=== PATIENT | female | born 1955 | race Hispanic/Latino ===

== ENCOUNTER 2017-05-13 08:25 | Observation (INO) | payer BC ==
[2014-06-16 15:56] VITALS: BMI 43.9
[2017-05-13] MEDS ORDERED: Midazolam 2 MG/2 ML VIAL ONE (12:46)
[2017-05-13] MEDS ORDERED: Propofol 10 mg/ml Inj (20 ML) ONE (12:46)
[2017-05-13] MEDS: HYDROmorphone 0.5 mg/0.5 ml ISec IVP PRN ×3 (13:28→13:55)
[2017-05-13 14:36] LABS: CK-MB 0.93 ng/mL (0.0-3.38)
--- NOTE | 2017-05-13 14:46 | CP.PCM.PN ---
Subjective - Date & Time of Evaluation Date of Evaluation: 05/13/17 Time of Evaluation: 13:30 - Subjective Subjective: Called to evaluate patient's chest pain/pressure at bedside. Patient describes it as intermittent pressure pointing to lower sternal and epigastric area. She states she has not felt this before. Pain is not reproducible to palpation. Vital signs noted as pulse 61, BP 149/75, pulse ox 100% on room air. Stat EKG ordered and reviewed as sinus bradycardia with no ST changes, SUZETTE panel ordered. Consulted with Dr. Garrison and she agreed to a medicine consult. Objective - Vital Signs/Intake and Output Vital Signs (last 24 hours): Temp Pulse Resp BP Pulse Ox 97.8 F 80 20 149/93 H 95 05/13/17 08:37 05/13/17 08:37 05/13/17 08:37 05/13/17 08:37 05/13/17 08:37 Intake and Output: 05/13/17 05/13/17 06:59 18:59 Intake Total 500 Balance 500 - Medications Medications: Current Medications Hydromorphone HCl (Dilaudid) 0.5 mg IVP Q10M PRN PRN Reason: Pain, moderate (4-7) Stop: 05/13/17 15:09
--- NOTE | 2017-05-13 15:19 | RAD ---
HISTORY: chest pressure COMPARISON: No prior. FINDINGS: LUNGS: No active pulmonary disease. PLEURA: No significant pleural effusion identified, no pneumothorax apparent. CARDIOVASCULAR: Normal. OSSEOUS STRUCTURES: No significant abnormalities. VISUALIZED UPPER ABDOMEN: Normal. OTHER FINDINGS: None. IMPRESSION: No active disease.
--- NOTE | 2017-05-13 15:45 | CP.PCM.CON ---
<EzioPhoebe - Last Filed: 05/13/17 15:52> History of Present Illness - History of Present Illness History of Present Illness: Medicine consult Reason for consult: post op chest pain HPI: Patient is a 61 year old female with PMH of CAD ([place] x5 per patient with 1 stent placed 10 years ago), HTN, hyperlipidemia, parotid CA (surgically removed) , GERD, COPD, peripheral vascular disease, diverticulosis, and post menopausal bleeding who presents in the PACU s/p D&C with substernal, non-radiating, non- reproducible chest pain/pressure. Patient says she woke up from surgery with this pain as well as feeling tired and weak all over. She says nothing makes it better or worse. She also admits to associated dizziness and nausea. Patient says she had a stress test 2 weeks ago for medical clearance for surgery which was normal. This was reviewed in her chart and confirmed. Last cath in 2014 showed 50% occlusion of LCX but otherwise normal study. Patient denies pain in her arms/neck/jaw, headache, changes in vision/hearing, SOB, abdominal pain, vomiting, diarrhea, changes in urination. PMD: Dr. Casillas Credit Officer: Arabella PMH: CAD ([place] x5 per patient with 1 stent placed 10 years ago), HTN, hyperlipidemia, parotid CA (surgically removed), GERD, COPD, peripheral vascular disease, diverticulosis, and post menopausal bleeding Meds: albuterol inhaler, lipitor 20 mg daily, carvedilol 12.5 mg daily, HCTZ 12.5 mg daily Allergies: PCN Surgeries: D&C (05/13/17), Left thumb unspecified, excision of parotid tumor, cholecystectomy, cardiac stent x1 FH: heart disease on mom's side of family, mother of vulvar cancer SH: former smoker (2 PPD x39 years, quit 10 years ago), social alcohol use, denies recreational drug use Review of Systems - Review of Systems All systems: reviewed and no additional remarkable complaints except (as per HPI ) Past Patient History - Infectious Disease Hx of Infectious Diseases: None - Tetanus Immunizations Tetanus Immunization: Unknown - Past Medical History & Family History Past Medical History?: Yes - Past Social History Smoking Status: Former Smoker - CARDIAC Hx Cardiac Disorders: Yes Hx Angina: Yes Hx Heart Attack: Yes Hx Hypercholesterolemia: Yes Hx Hypertension: Yes Hx Peripheral Vascular Disease: Yes (VARICOSE VEINS) Other/Comment: HX:CORONARY STENT (RCA)X1 - PULMONARY Hx Respiratory Disorders: Yes Hx Chronic Obstructive Pulmonary Disease (COPD): Yes Hx Emphysema: Yes - NEUROLOGICAL Hx Neurological Disorder: Yes Other/Comment: Numbness left facial area due to surgery. - ENDOCRINE/METABOLIC Hx Endocrine Disorders: Yes (Cancer of parathyroid) - HEMATOLOGICAL/ONCOLOGICAL Hx Blood Disorders: Yes Hx Cancer: Yes (HX: CANCER PARATHYROID GLAND(SURGERY-NO CHEMO)) - INTEGUMENTARY Hx Dermatological Problems: Yes Other/Comment: HX: LEFT BREAST CYSTS - MUSCULOSKELETAL/RHEUMATOLOGICAL Hx Musculoskeletal Disorders: Yes Hx Falls: No Hx Fractures: Yes (Left thumb) Other/Comment: HX: DIVERTICULOSIS - GASTROINTESTINAL Hx Gastrointestinal Disorders: Yes Hx Gall Bladder Disease: Yes Hx Gastroesophageal Reflux: Yes (Freq Heart burn) - GENITOURINARY/GYNECOLOGICAL Hx Genitourinary Disorders: Yes Hx Postmenopausal Bleeding: Yes - SURGICAL HISTORY Hx Surgeries: Yes Hx Breast Biopsy: Yes (LEFT BREAST X2-CYSTS) Hx Cardiac Catheterization: Yes Hx Cholecystectomy: Yes Hx Coronary Stent: Yes (X1) Other/Comment: Parathyroid gland removed due to cancer. Left breast Lumpectomy X2. Left thumb repair with pins. - ANESTHESIA Hx Anesthesia: Yes Hx Anesthesia Reactions: No Hx Malignant Hyperthermia: No Has any member of the family had a problem w/ anesthesia?: No Meds Allergies/Adverse Reactions: Allergies Allergy/AdvReac Type Severity Reaction Status Date / Time Penicillins Allergy RASH Unverified 05/05/17 13:26 Physical Exam - Constitutional Appears: Non-toxic, No Acute Distress - Head Exam Head Exam: NORMAL INSPECTION - Eye Exam Eye Exam: EOMI, Normal appearance, PERRL - ENT Exam ENT Exam: Mucous Membranes Moist - Respiratory Exam Respiratory Exam: Clear to Auscultation Bilateral, NORMAL BREATHING PATTERN. absent: Accessory Muscle Use, Rales, Rhonchi, Wheezes, Respiratory Distress - Cardiovascular Exam Cardiovascular Exam: RRR, +S1, +S2. absent: Tachycardia, Diastolic murmur, Gallop, Rubs, Systolic Murmur - GI/Abdominal Exam GI & Abdominal Exam: Normal Bowel Sounds, Soft. absent: Distended, Tenderness - Extremities Exam Extremities exam: Positive for: pedal edema. Negative for: calf tenderness - Neurological Exam Neurological exam: Alert, Oriented x3 - Psychiatric Exam Psychiatric exam: Normal Affect, Normal Mood - Skin Skin Exam: Dry, Intact, Normal Color, Warm Results - Vital Signs Recent Vital Signs: Last Vital Signs Temp 97.8 F 05/13/17 08:37 Pulse 80 05/13/17 08:37 Resp 20 05/13/17 08:37 BP 149/93 H 05/13/17 08:37 Pulse Ox 95 05/13/17 08:37 - Labs Labs: Laboratory Results - last 24 hr 05/13/17 14:12 Total Creatine Kinase 67 CK-MB (Mass) 0.93 Troponin I < 0.0120 Assessment & Plan (1) Chest pain Assessment and Plan: * Admit to telemetry for observation * Troponin negative x1 * f/u trend (20:00 tonight and 02:00 tomorrow morning) * EKG: Normal sinus rhythm * CXR: no active disease * Protonix * Nitro paste 1/2 in * f/u with Garrison for recs on Aspirin and whether or not to give s/p D&C * Most recent stress test (2 weeks ago) was normal Status: Acute Onset Date: 05/13/17 - Assessment and Plan (Free Text) Assessment: 61F with PMH of CAD ([place] x5 per patient with 1 stent placed 10 years ago), HTN, hyperlipidemia, parotid CA (surgically removed), GERD, COPD, peripheral vascular disease, diverticulosis, and post menopausal bleeding who presents in the PACU s/p D&C with substernal, non-radiating, non-reproducible chest pain/ pressure. <Dayanna Crane V - Last Filed: 05/13/17 18:45> Meds - Medications Medications: Current Medications Pantoprazole Sodium (Protonix Ec Tab) 40 mg PO DAILY ANI Results - Vital Signs Recent Vital Signs: Last Vital Signs Temp 97.8 F 05/13/17 08:37 Pulse 80 05/13/17 08:37 Resp 20 05/13/17 08:37 BP 149/93 H 05/13/17 08:37 Pulse Ox 95 05/13/17 08:37 - Labs Labs: Laboratory Results - last 24 hr 05/13/17 14:12 Total Creatine Kinase 67 CK-MB (Mass) 0.93 Troponin I < 0.0120 Attending/Attestation - Attestation I have personally seen and examined this patient.: Yes I have fully participated in the care of the patient.: Yes I have reviewed all pertinent clinical information: Yes Notes (Text): Patient seen, examined, and case discussed with day-time resident. Patient seen in the PACU. Reviewed EKG: Sinus bradycardia HR: 55 and SUZETTE: negative. Patient reports chest pain, in the middle of her chest, non-radiating, started after the surgery. Patient denies sour taste in mouth. Patient prior to my arrival has received Dilaudid 0.5mg IV X3 doses. Patient had LAMA, had propofol, fentanyl, and midazolam. Patient has significant cardiac history including hypertension, coronary artery disease, prior RCA stent in 2015 was evaluated by cardiology prior to D&C procedure with OB-MAMMALOGY TEACHER Discussed with OB-MAMMALOGY TEACHER, patient had minimal blood loss during procedure, may restart Aspirin. From her prespective, stable for discharge. Will observe patient overnight and monitor EKG and ROMIsX3 in light of chest pain given cardiac history. patient's medical and cardiac clearances are included in the paper chart. Assessment/Plan (1) Chest pain History of Coronary Artery Disease Hypertension Assessment and Plan: * Observation to telemetry * Troponin negative x1 * SUZETTE and EKG at 20:00 tonight * SUZETTE and EKG at 2:00 tomorrow * EKG: bradycardia (HR 55) * CXR: no active disease * Apply Nitro paste 1/2 inch topical for chest pain * f/u with Garrison for recs on Aspirin and whether or not to give s/p D&C * Most recent stress test (2 weeks ago) was normal * Restart Aspirin 81mg PO daily * Restart beta-elayne, statin, and diuretic * Ordered for a1c, tsh, cbc, cmp, mag, phosp in AM 2) Postmenopausal bleeding Assessment and Plan: * management per OB-MAMMALOGY TEACHER * minimal bleeding during procedure * Permits Aspirin use post procedure 3) Prophylactic measure Assessment and Plan: * Hold chemical anticoagulation since patient's postoperative day 0 * Hold SCDS given history of PVD * Protonix 40mg PO daily
[2017-05-13] MEDS ORDERED: Nitroglycerin 2% Ointment Foilpak UD TOP ONE (15:48)
--- NOTE | 2017-05-13 17:09 | PCM.SURG1 ---
Surgeon's Initial Post Op Note - Surgeon's Notes Surgeon: Yuly Garrison MD Slitter Service And Setter: none Type of Anesthesia: General LMA Pre-Operative Diagnosis: Postmenopausal bleeding Operative Findings: enlarged uteurs, 10 weeks, no adnexa lmasses, cervical stenosis, bilaer ostia visulalized, no gross masses Post-Operative Diagnosis: same as above Operation Performed: Operative hysterosocpy, fractional dilation and currettage Specimen/Specimens Removed: endocervical curretting, endometrial currettings Estimated Blood Loss: EBL {In ML}: 20 Blood Products Given: N/A Drains Used: No Drains Post-Op Condition: Good Date of Surgery/Procedure: 05/13/17 Time of Surgery/Procedure: 13:00
--- NOTE | 2017-05-13 17:17 | CP.PCM.PN ---
Subjective - Date & Time of Evaluation Date of Evaluation: 05/13/17 Time of Evaluation: 14:10 - Subjective Subjective: pt s/p DXC hysterosocpy co chest pressure in recomvery room. upon evulation pt rperots feelng pressure on chest, no direct cp, sob. pt reports discomfort feels like gas. pt evluated by anestheisa, ekg and troponin ordered,which was dmitriy/negaive Upone evuation VSS PE GEN NAD, Oxygen face mask RESP: CTAB?l CVS: +S1/S2 BS: soft, nt , nd EXT: negative homans sign VE: no vaginal bleeding Pt reevaluted 30 min later and felt like vomiting, pt given zofran and started to feel better IM Consult called- Dr Dayanna Crane to evlaute pt for overnight telemetry due to cardia chistory Objective - Vital Signs/Intake and Output Vital Signs (last 24 hours): Temp Pulse Resp BP Pulse Ox 97.8 F 80 20 149/93 H 95 05/13/17 08:37 05/13/17 08:37 05/13/17 08:37 05/13/17 08:37 05/13/17 08:37 Intake and Output: 05/13/17 05/13/17 06:59 18:59 Intake Total 500 Balance 500 - Medications Medications: Current Medications Pantoprazole Sodium (Protonix Ec Tab) 40 mg PO DAILY ANI
[2017-05-13] MEDS ORDERED: Albuterol HFA 90 mcg/actuation (8 g) INH PRN (18:40)
[2017-05-13 20:53] LABS: CK-MB 0.71 ng/mL (0.0-3.38)
[2017-05-14 00:25] VITALS: RESP 20
--- NOTE | 2017-05-14 01:21 | OP ---
PROCEDURE DATE: 05/13/2017 SURGEON: Yuly Garrison MD SCENE AND LIGHTING DESIGN LECTURER: None. TYPE OF ANESTHESIA: General LMA. PREOPERATIVE DIAGNOSIS: Postmenopausal bleeding. POSTOPERATIVE DIAGNOSIS: Postmenopausal bleeding. OPERATIVE FINDINGS: Enlarged uterus of 10 weeks, mild cervical stenosis, bilateral ostia visualized, no gross masses. OPERATIONS PERFORMED: Operative hysteroscopy and fractional dilation and curettage. SPECIMENS REMOVED: Endocervical curettings, endometrial curettings. ESTIMATED BLOOD LOSS: 20 mL. BLOOD PRODUCTS: None. COMPLICATIONS: None. DESCRIPTION OF PROCEDURE: The patient was taken to the operating where she was given general anesthesia, once this was found to be adequate, she was placed on the operating table in the dorsal supine position with legs supported using stirrups. The patient was then prepped and draped in the usual sterile fashion. Bimanual examination was performed with the above-mentioned findings. A red rubber catheter was then inserted into the urethra to drain the bladder. Following this, a Cannon retractor was placed on the anterior and posterior fornix of the vagina. The cervix was adequately visualized and a single-tooth tenaculum was placed in the anterior lip of the cervix, and endocervical curettings were obtained with a [facility] cure[facility] and sent to pathology on [facility]. The cervix was sequentially dilated and uterus was then sounded to 6 cm. Following this, the cervix was sequentially dilated to allow for introduction of a 5 mm hysteroscope under direct visualization using normal saline as the distention media. Following this, there was no mass noted in the endometrial cavity. Bilateral ostia were visualized. The hysteroscope was then removed and a gentle curettage was done 360 in endometrial cavity until gritty texture was noted. Specimen was sent to pathology. All instruments were removed. There was good hemostasis at the tenaculum puncture sites. At the end of the procedure, all needle, sponge and instrument counts were noted and correct x2. The patient tolerated the procedure well and was transferred to the recovery room in stable condition. Yuly Garrison MD
[2017-05-14 03:53] LABS: CK-MB 0.62 ng/mL (0.0-3.38)
[2017-05-14 07:18] LABS: BASO % 0.4 % (0.0-2.0); EOS # 0.3 K/uL (0.0-0.7); EOS % 2.7 % (0.0-4.0); HEMOGLOBIN 13.2 g/dL (11.0-16.0); LYMPH % 19.4 % (20.0-40.0); MEAN CELL VOLUME 86.6 fL (81.0-99.0); MEAN CORPUSCULAR HEMOGLOBIN 29.1 pg (27.0-31.0); MEAN CORPUSCULAR HGB CONC 33.6 g/dL (33.0-37.0); MEAN PLATELET VOLUME 10.8 fL (7.2-11.7); MONO # 0.8 K/uL (0.0-0.8); MONO % 7.4 % (0.0-10.0); NEUT # 7.2 K/uL (1.8-7.0); NEUT % 70.1 % (50.0-75.0); RBC 4.53 Mil/uL (3.80-5.20); RED CELL DISTRIBUTION WIDTH 15.1 % (11.5-14.5); WHITE BLOOD COUNT 10.2 K/uL (4.8-10.8)
[2017-05-14 07:27] LABS: ALB/GLOB RATIO 1.2 (1.0-2.1); ALBUMIN 3.9 g/dL (3.5-5.0); ALT/SGPT 41 U/L (9-52); AST/SGOT 33 U/L (14-36); BLOOD UREA NITROGEN 10 mg/dL (7-17); CALCIUM 8.9 mg/dl (8.6-10.4); GFR AFRICAN-AMERICAN > 60; GFR NON-AFRICAN AMERICAN > 60; HDL CHOLESTEROL 40 mg/dL (30-70)
[2017-05-14 07:37] LABS: LDL CHOLESTEROL 131 mg/dL (0-129)
[2017-05-14 07:56] VITALS: TEMP 98.3; O2SAT 97
[2017-05-14 08:04] VITALS: PULSE 79
[2017-05-14] MEDS ORDERED: Pantoprazole 40 mg EC Tab PO SCH (10:00)
[2017-05-14 10:30] VITALS: BP 143/78
--- NOTE | 2017-05-14 11:56 | CP.PCM.DIS ---
<Anthony Padron - Last Filed: 05/14/17 11:53> Provider - Provider Date of Admission: 05/13/17 16:08 Attending physician: Dayanna Crane DO Consults: Dr. Enzo Garrison; OBGYN Time Spent in preparation of Discharge (in minutes): 45 Hospital Course - Lab Results Lab Results: Most Recent Lab Values WBC 10.2 K/uL (4.8-10.8) 05/14/17 07:02 RBC 4.53 Mil/uL (3.80-5.20) 05/14/17 07:02 Hgb 13.2 g/dL (11.0-16.0) 05/14/17 07:02 Hct 39.3 % (34.0-47.0) 05/14/17 07:02 MCV 86.6 fL (81.0-99.0) 05/14/17 07:02 MCH 29.1 pg (27.0-31.0) 05/14/17 07:02 MCHC 33.6 g/dL (33.0-37.0) 05/14/17 07:02 RDW 15.1 % (11.5-14.5) H 05/14/17 07:02 Plt Count 189 K/uL (130-400) 05/14/17 07:02 MPV 10.8 fL (7.2-11.7) 05/14/17 07:02 Neut % (Auto) 70.1 % (50.0-75.0) 05/14/17 07:02 Lymph % (Auto) 19.4 % (20.0-40.0) L 05/14/17 07:02 [place] % (Auto) 7.4 % (0.0-10.0) 05/14/17 07:02 Eos % (Auto) 2.7 % (0.0-4.0) 05/14/17 07:02 Baso % (Auto) 0.4 % (0.0-2.0) 05/14/17 07:02 Neut # (Auto) 7.2 K/uL (1.8-7.0) H 05/14/17 07:02 Lymph # (Auto) 2.0 K/uL (1.0-4.3) 05/14/17 07:02 [place] # (Auto) 0.8 K/uL (0.0-0.8) 05/14/17 07:02 Eos # (Auto) 0.3 K/uL (0.0-0.7) 05/14/17 07:02 Baso # (Auto) 0.0 K/uL (0.0-0.2) 05/14/17 07:02 Sodium 137 mmol/L (132-148) 05/14/17 07:02 Potassium 3.6 mmol/L (3.6-5.2) 05/14/17 07:02 Chloride 98 mmol/L (98-107) 05/14/17 07:02 Carbon Dioxide 28 mmol/L (22-30) 05/14/17 07:02 Anion Gap 15 (10-20) 05/14/17 07:02 BUN 10 mg/dL (7-17) 05/14/17 07:02 Creatinine 0.8 mg/dL (0.7-1.2) 05/14/17 07:02 Est GFR ( Amer) > 60 05/14/17 07:02 Est GFR (Non-Af Amer) > 60 05/14/17 07:02 POC Glucose (mg/dL) 115 mg/dL (65-110) H 05/14/17 06:54 Random Glucose 103 mg/dL (65-105) 05/14/17 07:02 Hemoglobin A1c 5.8 % (4.2-6.5) 05/13/17 20:19 Calcium 8.9 mg/dl (8.6-10.4) 05/14/17 07:02 Total Bilirubin 0.8 mg/dL (0.2-1.3) 05/14/17 07:02 AST 33 U/L (14-36) 05/14/17 07:02 ALT 41 U/L (9-52) 05/14/17 07:02 Alkaline Phosphatase 127 U/L (38-126) H 05/14/17 07:02 Total Creatine Kinase 54 U/L (30-135) 05/14/17 03:25 CK-MB (Mass) 0.62 ng/mL (0.0-3.38) 05/14/17 03:25 Troponin I < 0.0120 ng/mL (0.00-0.120) 05/14/17 03:25 Total Protein 7.2 g/dL (6.3-8.3) 05/14/17 07:02 Albumin 3.9 g/dL (3.5-5.0) 05/14/17 07:02 Globulin 3.3 gm/dL (2.2-3.9) 05/14/17 07:02 Albumin/Globulin Ratio 1.2 (1.0-2.1) 05/14/17 07:02 Triglycerides 123 mg/dL (0-149) 05/14/17 07:02 Cholesterol 206 mg/dL (0-199) H 05/14/17 07:02 LDL Cholesterol Direct 131 mg/dL (0-129) H 05/14/17 07:02 HDL Cholesterol 40 mg/dL (30-70) 05/14/17 07:02 TSH 3rd Generation 0.95 mIU/L (0.46-4.68) 05/14/17 07:02 - Hospital Course Hospital Course: Chest pain s/p dnC procedure Patient has significant cardiac history, as well as many risk factors troponins were negative times three as well as EKG non remarkable for ACS patient no longer has chest pain patient was told to modify diet/exercise plan for her IGT and hyperlipidemia which she knows about from previous blood work. Patient verbalizes understanding and is in agreement with treatment plan. 61F with PMH of CAD ([place] x5 per patient with 1 stent placed 10 years ago), HTN, hyperlipidemia, parotid CA (surgically removed), GERD, COPD, peripheral vascular disease, diverticulosis, and post menopausal bleeding who presents in the PACU s/p D&C with substernal, non-radiating, non-reproducible chest pain/ pressure which has resolved completely. The patient is stable for d/c as per Dr. Crane and OBGYN Discharge Exam - Head Exam Head Exam: NORMAL INSPECTION - Eye Exam Eye Exam: EOMI - ENT Exam ENT Exam: Mucous Membranes Moist - Respiratory Exam Respiratory Exam: Clear to PA & Lateral, NORMAL BREATHING PATTERN. absent: Rales, Rhonchi, Wheezes - Cardiovascular Exam Cardiovascular Exam: REGULAR RHYTHM, RRR, +S1, +S2. absent: Clicks, JVD, Rubs - GI/Abdominal Exam GI & Abdominal Exam: Normal Bowel Sounds. absent: Soft, Tenderness - Extremities Exam Extremities exam: full ROM - Back Exam Back exam: absent: CVA tenderness (L), CVA tenderness (R) - Neurological Exam Neurological exam: Alert, Oriented x3 - Psychiatric Exam Psychiatric exam: Normal Affect, Normal Mood - Skin Skin Exam: Warm Discharge Plan - Follow Up Plan Condition: GOOD Disposition: HOME/ ROUTINE Patient education suggested?: Yes Instructions: Low Cholesterol, Saturated Fat, and Trans Fat Diet , Chest Pain That Is Not Caused by the Heart (DC), Acid Reflux (Gastroesophageal Reflux Disease), Adult (DC), Dilation and Curettage (DC), Postoperative Pain (DC), Prediabetes (DC), Bleeding After Surgery Additional Instructions: Patient is stable for discharge as per Dr Garrison, OB-GLOBAL MARKETING INTERN. Follow up with Dr Garrison within two weeks and follow up with oil plant operator within a week. Activity restriction sheet is provided with discharge instructions. Please refrain from vaginal sex for atleast 2 weeks. No douching, no tampons. Observe for any increase in pain, foul discharge, odor, or bleeding. If chest pain persists or returns please return to emergency department. Prescription for Milk of Magnesia is provided. <Dayanna Crane V - Last Filed: 05/14/17 12:49> Provider - Provider Date of Admission: 05/13/17 16:08 Attending physician: Dayanna Crane DO Hospital Course - Lab Results Lab Results: Most Recent Lab Values WBC 10.2 K/uL (4.8-10.8) 05/14/17 07:02 RBC 4.53 Mil/uL (3.80-5.20) 05/14/17 07:02 Hgb 13.2 g/dL (11.0-16.0) 05/14/17 07:02 Hct 39.3 % (34.0-47.0) 05/14/17 07:02 MCV 86.6 fL (81.0-99.0) 05/14/17 07:02 MCH 29.1 pg (27.0-31.0) 05/14/17 07:02 MCHC 33.6 g/dL (33.0-37.0) 05/14/17 07:02 RDW 15.1 % (11.5-14.5) H 05/14/17 07:02 Plt Count 189 K/uL (130-400) 05/14/17 07:02 MPV 10.8 fL (7.2-11.7) 05/14/17 07:02 Neut % (Auto) 70.1 % (50.0-75.0) 05/14/17 07:02 Lymph % (Auto) 19.4 % (20.0-40.0) L 05/14/17 07:02 [place] % (Auto) 7.4 % (0.0-10.0) 05/14/17 07:02 Eos % (Auto) 2.7 % (0.0-4.0) 05/14/17 07:02 Baso % (Auto) 0.4 % (0.0-2.0) 05/14/17 07:02 Neut # (Auto) 7.2 K/uL (1.8-7.0) H 05/14/17 07:02 Lymph # (Auto) 2.0 K/uL (1.0-4.3) 05/14/17 07:02 [place] # (Auto) 0.8 K/uL (0.0-0.8) 05/14/17 07:02 Eos # (Auto) 0.3 K/uL (0.0-0.7) 05/14/17 07:02 Baso # (Auto) 0.0 K/uL (0.0-0.2) 05/14/17 07:02 Sodium 137 mmol/L (132-148) 05/14/17 07:02 Potassium 3.6 mmol/L (3.6-5.2) 05/14/17 07:02 Chloride 98 mmol/L (98-107) 05/14/17 07:02 Carbon Dioxide 28 mmol/L (22-30) 05/14/17 07:02 Anion Gap 15 (10-20) 05/14/17 07:02 BUN 10 mg/dL (7-17) 05/14/17 07:02 Creatinine 0.8 mg/dL (0.7-1.2) 05/14/17 07:02 Est GFR ( Amer) > 60 05/14/17 07:02 Est GFR (Non-Af Amer) > 60 05/14/17 07:02 POC Glucose (mg/dL) 115 mg/dL (65-110) H 05/14/17 06:54 Random Glucose 103 mg/dL (65-105) 05/14/17 07:02 Hemoglobin A1c 5.8 % (4.2-6.5) 05/13/17 20:19 Calcium 8.9 mg/dl (8.6-10.4) 05/14/17 07:02 Total Bilirubin 0.8 mg/dL (0.2-1.3) 05/14/17 07:02 AST 33 U/L (14-36) 05/14/17 07:02 ALT 41 U/L (9-52) 05/14/17 07:02 Alkaline Phosphatase 127 U/L (38-126) H 05/14/17 07:02 Total Creatine Kinase 54 U/L (30-135) 05/14/17 03:25 CK-MB (Mass) 0.62 ng/mL (0.0-3.38) 05/14/17 03:25 Troponin I < 0.0120 ng/mL (0.00-0.120) 05/14/17 03:25 Total Protein 7.2 g/dL (6.3-8.3) 05/14/17 07:02 Albumin 3.9 g/dL (3.5-5.0) 05/14/17 07:02 Globulin 3.3 gm/dL (2.2-3.9) 05/14/17 07:02 Albumin/Globulin Ratio 1.2 (1.0-2.1) 05/14/17 07:02 Triglycerides 123 mg/dL (0-149) 05/14/17 07:02 Cholesterol 206 mg/dL (0-199) H 05/14/17 07:02 LDL Cholesterol Direct 131 mg/dL (0-129) H 05/14/17 07:02 HDL Cholesterol 40 mg/dL (30-70) 05/14/17 07:02 TSH 3rd Generation 0.95 mIU/L (0.46-4.68) 05/14/17 07:02 Attending/Attestation - Attestation I have personally seen and examined this patient.: Yes I have fully participated in the care of the patient.: Yes I have reviewed all pertinent clinical information, including history, physical exam and plan: Yes Notes (Text): Patient seen, examined and case discussed with day-time resident. Patient seen this morning. Denies acute complaints. SUZETTE X3: negative EKG: NSR X3 Medically stable for discharge. patient to resume home medications. Per OB-GLOBAL MARKETING INTERN stable for discharge. Per OBGYN for specific discharge instruction s/ p D&C. This is a summary patient's hospitalization. Please see EMR for further details. Discharge Diagnoses: (1) Chest pain (resolved) History of Coronary Artery Disease-->Chronic Hypertension-->chronic Assessment and Plan: * Observation to telemetry * SUZETTE X3 * EKG: NSR * CXR: no active disease * Resume home medications upon discharge * Follow-up with PMD and oil plant operator as outpatient 2) Postmenopausal bleeding--Stable Assessment and Plan: * management per OB-GLOBAL MARKETING INTERN * minimal bleeding during procedure * Permits Aspirin use post procedure 3) Prophylactic measure Assessment and Plan: * Hold chemical anticoagulation since patient's postoperative day 1 * Hold SCDS given history of PVD * Protonix 40mg PO daily
--- NOTE | 2017-05-16 12:33 | CARD ---
APPROVED REPORT EKG Measurement Heart [id number] <Conclusion> Normal sinus rhythm Nonspecific T wave abnormality Prolonged QT Abnormal ECG
== END 2017-05-14 11:41 | disposition home or self-care (01) ==
LOC: C.SDS 08:25 → UNDOADMOB 15:51 → C.9S 15:51 → C.6T 18:16
PROVIDERS: ADMIT Hospitalist; ATTEND Hospitalist
DX: N95.0 Postmenopausal bleeding (principal); N88.2 Stricture and stenosis of cervix uteri; R07.89 Other chest pain; N85.2 Hypertrophy of uterus; I25.10 Atherosclerotic heart disease of native coronary artery without angina pectoris; I10 Essential (primary) hypertension; E78.5 Hyperlipidemia, unspecified; E78.00 Pure hypercholesterolemia, unspecified; I25.2 Old myocardial infarction; I73.9 Peripheral vascular disease, unspecified; J43.9 Emphysema, unspecified; K21.9 Gastro-esophageal reflux disease without esophagitis; Z79.82 Long term (current) use of aspirin; Z85.858 Personal history of malignant neoplasm of other endocrine glands; Z87.891 Personal history of nicotine dependence; Z90.49 Acquired absence of other specified parts of digestive tract; Z95.5 Presence of coronary angioplasty implant and graft
CPT/HCPCS: 36415; 58558; 71045; 80053; 80061; 82948; 83036; 84443; 84484; 85025; 88305; C9113; G0378; J1170; J2250; J2405; J2704; J3010